=== PATIENT | female | born 1960 | race Hispanic/Latino ===

== ENCOUNTER → 2025-05-30 | Outpatient (CLI) | payer OTHER ==
[~2025-05-30] MED LIST: LOVA10TA2 PO; METF-444 PO
--- NOTE | 2025-05-31 08:28 | HMCIMG ---
EXAM: CT Cardiac calcium scoring. CLINICAL HISTORY: CAD screening. TECHNIQUE: Thin collimated axial CT cardiac images were obtained. A CT scan is done according to ALARA (As Low As Reasonably Achievable). CONTRAST: None. COMPARISON: None provided. FINDINGS: Calcium Score: VESSEL Number of lesions Volume mm3 Equi. Mass/mg Calcium score LM 3 75.4 --.-- 94.01 LAD 3 340.2 --.-- 483.9 LCX 3 152.1 --.-- 217.1 RCA 3 47.6 --.-- 56.9 Total 12 615.2 --.-- 852.0 IMPRESSION: The calcium score is 852. This places the patient above 90th percentile in comparison to a group of patients asymptomatic for coronary artery disease with the same age and gender. This means that >90% of females aged 65-69 have a calcium score that is lower than the patient's. /Weaver
== END | disposition home or self-care (01) ==
LOC: RAH 13:19
PROVIDERS: ATTEND Family Medicine
DX: Z13.6 Encounter for screening for cardiovascular disorders (principal); I25.10 Atherosclerotic heart disease of native coronary artery without angina pectoris
CPT/HCPCS: 75571